=== PATIENT | female | born 1980 | race Caucasian/White ===

== ENCOUNTER 2016-12-02 12:32 | Emergency (ER) | payer OTHER ==
--- NOTE | ~2016-12-02 | CR133 ---
[facility] A Service of [facility] & [facility] / [facility] RADIOLOGY TEXT RESULTS PATIENT: HOWARD ARGUETA LOCATION: CFTX : 80 UNIT #: [id number] AGE: [address]: Dionicio Muniz SEX: F ORDER DR: [id number] [facility] [address] [place], [place] [address] [id number] E MR#: [id number] Acc #: [id number] NAME: HOWARD ARGUETA. : 1980 SEX: F STUDY DATE/TIME: 12/02/2016 13:38 UNIT: [facility] ROOM: STUDY DESCRIPTION: CR Forearm 2 View Rt Attending Physician: Dionicio Muniz Ordering Physician: Dionicio Muniz Primary Care Physician: Tracey Primary Care Physician MEDICAL IMAGING REPORT This report is preliminary unless electronic signature is present EXAM Right forearm 12/02/2016. HISTORY 35-year-old female with right forearm pain status post twisting injury this morning. COMPARISON Right wrist same date. FINDINGS 2 views of the right forearm demonstrate no acute fracture or dislocation. Soft tissues are unremarkable. IMPRESSION Unremarkable right forearm. Dictated by... Richi Brown M.D. THIS IS AN ELECTRONICALLY VERIFIED REPORT Richi Brown M.D. at 12/02/2016 5:00 PM JODALYS/tin TD: 12/02/2016 16:55 JOB #: [id number] MEDICAL IMAGING REPORT Page 1 of 1 COPY
--- NOTE | ~2016-12-02 | CR282 ---
[facility] A Service of [facility] & [facility] RADIOLOGY TEXT RESULTS PATIENT: HOWARD ARGUETA LOCATION: CFTX : 80 UNIT #: [id number] AGE: [address]: Dionicio Muniz SEX: F ORDER DR: [id number] [facility] [address] [place], [place] [address] [id number] E MR#: [id number] Acc #: [id number] NAME: HOWARD ARGUETA. : 1980 SEX: F STUDY DATE/TIME: 12/02/2016 13:36 UNIT: [facility] ROOM: STUDY DESCRIPTION: CR Wrist Min 3 View Rt Attending Physician: (Mayank) Dionicio Muniz Ordering Physician: Mayank Muniz Primary Care Physician: No Primary Care Physician MEDICAL IMAGING REPORT This report is preliminary unless electronic signature is present EXAM Right wrist, 12/02/16. HISTORY 35-year-old female with right wrist pain beginning this morning. COMPARISON Right forearm same date. FINDINGS Three views of the right wrist demonstrate no acute fracture or dislocation. Soft tissues are unremarkable. IMPRESSION Unremarkable right wrist. Dictated by... Richi Brown M.D. THIS IS AN ELECTRONICALLY VERIFIED REPORT Richi Brown M.D. at 12/02/2016 5:00 PM Saba TD: 12/02/2016 16:57 JOB #: [id number] MEDICAL IMAGING REPORT Page 1 of 1 COPY
[~2016-12-02 12:32] MED LIST: ACID REFLUX MED; ALLEGRA-D1 TAB 60/1 PO; BENZONATATE; BENZONATATE PO; KETOPROFEN PO; MOTRIN600 MG PO; NAPROSYN500 MG PO; NAPROXEN500 M1 PO; NO MEDICATIONS; NORVASC2.5 MG; PHENERGAN25 MG; PHENERGAN25 MG PO; ROBITUSSIN A-C-S1 ML PO; VICODIN 5/1 TAB 5/50 PO; VICODIN PO; VOLTAREN50 MG PO
== END 2016-12-02 14:36 | disposition home or self-care (01) ==
LOC: CED 12:32 → CFTX 12:32 → CED 14:21 → CFTX 14:21
DX: S56.911A Strain of unspecified muscles, fascia and tendons at forearm level, right arm, initial encounter (principal); S66.911A Strain of unspecified muscle, fascia and tendon at wrist and hand level, right hand, initial encounter; F17.210 Nicotine dependence, cigarettes, uncomplicated; I10 Essential (primary) hypertension; J45.909 Unspecified asthma, uncomplicated; E28.2 Polycystic ovarian syndrome; Z88.8 Allergy status to other drugs, medicaments and biological substances; Z88.1 Allergy status to other antibiotic agents; X58.XXXA Exposure to other specified factors, initial encounter; Y92.009 Unspecified place in unspecified non-institutional (private) residence as the place of occurrence of the external cause
CPT/HCPCS: 29260; 73090; 73110; 84703; 96372; 99283; J1885

== ENCOUNTER 2016-12-03 12:30 | Emergency (ER) | payer OTHER | END 2016-12-03 13:15 | disposition home or self-care (01) | LOC: CED 12:30 → CFTX 12:30 | DX: M25.531 Pain in right wrist (principal); I10 Essential (primary) hypertension; E11.9 Type 2 diabetes mellitus without complications; Z88.1 Allergy status to other antibiotic agents; F17.200 Nicotine dependence, unspecified, uncomplicated; Z88.2 Allergy status to sulfonamides | CPT/HCPCS: 99283 ==